=== PATIENT | female | born 1990 | race Caucasian/White ===

== ENCOUNTER 2017-09-03 17:24 | Inpatient (IN) | payer MEDICAID, OTHER ==
[~2017-09-03] VITALS: Ht 175.3 cm; Wt 88.5 kg
[~2017-09-03 17:24] MED LIST: DOCU250C91 PO; HYDR12.54 PO; LURA80 PO; MIRT15 PO; MULT-22 PO; ZIPR80CA2 PO
[2017-09-03] MEDS ORDERED: BUSP5TAB20 PO (18:07)
[2017-09-03] MEDS ORDERED: HALO50VI4 IM (18:07)
[2017-09-03] MEDS ORDERED: ARIP400S3 IM (18:07)
[2017-09-03] MEDS ORDERED: BENZ0.5T44 PO (18:07)
[2017-09-03 18:37] LABS: BASOPHILS % (AUTO) 0.3 % (0.0-2.0); EOSINOPHILS % (AUTO) 0.8 % (1.0-6.0); HEMATOCRIT 39.8 % (36-46); HEMOGLOBIN 13.4 g/dL (12.0-16.0); LYMPHOCYTES % (AUTO) 24.5 % (22.0-44.0); MEAN CORPUSCULAR HEMOGLOBIN 31.2 pg (26.0-34.0); MEAN CORPUSCULAR HGB CONC 33.8 G/dL (31.0-37.0); MEAN CORPUSCULAR VOLUME 92 fL (80-100); MONOCYTES # (AUTO) 0.5 K/uL (0.1-1.0); MONOCYTES % (AUTO) 5.8 % (2.0-9.0); NEUTROPHILS # (AUTO) 5.6 K/uL (1.8-7.7); NEUTROPHILS % (AUTO) 68.6 % (40.0-70.0); PLATELET COUNT (AUTO) 260 K/uL (150-450); RED CELL DISTRIBUTION WIDTH 13.2 % (11.5-14.5)
[2017-09-03 18:52] LABS: ANION GAP 7 mmol/L (8-16); CALCIUM, TOTAL 8.9 mg/dL (8.8-10.5); CARBON DIOXIDE 29 mmol/L (22-29); CHLORIDE 108 mmol/L (98-107); CREATININE 0.87 mg/dL (0.60-1.30); GLOMERULAR FILTR. RATE CALC > 60 mL/min (>60); GLUCOSE,RANDOM 93 mg/dL (70-110); POTASSIUM 4.1 mmol/L (3.5-5.1); SODIUM SERUM 144 mmol/L (136-145); UREA NITROGEN, BLOOD 17 mg/dL (7-18)
[2017-09-03 18:58] LABS: ALANINE AMINOTRANSFERASE 53 U/L (12-78); ALBUMIN 3.7 g/dL (3.4-5.0); ALKALINE PHOSPHATASE 83 U/L (46-116); ASPARTATE AMINOTRANSFERASE 29 U/L (15-37); BILIRUBIN,TOTAL 0.5 mg/dL (0.1-1.0)
[2017-09-03 20:00] LABS: AMPHET/METH SCREEN,URINE POSITIVE (NEGATIVE); BARBITURATE SCREEN, URINE NEGATIVE (NEGATIVE); BENZODIAZEPINES SCREEN,URINE NEGATIVE (NEGATIVE); CANNABINOID SCREEN,URINE NEGATIVE (NEGATIVE); COCAINE SCREEN,URINE NEGATIVE (NEGATIVE); METHADONE SCREEN, URINE NEGATIVE (NEGATIVE); OPIATE SCREEN,URINE NEGATIVE (NEGATIVE)
[2017-09-03 20:06] LABS: PHENCYCLIDINE SCREEN,URINE NEGATIVE (NEGATIVE)
[2017-09-04 09:27] VITALS: BP 116/73
[2017-09-04 09:43] LABS: CHOL/HDL RATIO 2.4 (3.9-5.7); CHOLESTEROL 160 mg/dL (131-200); HDL CHOLESTEROL 66 mg/dL (40-60); LDL CHOL (CALC.) 80 mg/dL (0-130); TRIGLYCERIDES 68 mg/dL (15-150)
[2017-09-04] MEDS ORDERED: INFLUENZA VIRUS VACCINE QVS 2017-18 (3YR+)/PF 60 MCG/0.5 ML SYRINGE IM ONE (10:30)
[2017-09-04] MEDS ORDERED: PNEUMOCOCCAL VACCINE POLYVALENT 0.5 ML VIAL [PPSV23] IM ONE (10:30)
[2017-09-04] MEDS: LORazepam 2 MG TABLET PO PRN ×2 (11:56→20:03)
[2017-09-04] MEDS ORDERED: MAG HYDROX/AL HYDROX/SIMETH ES 30 ML SUSPENSION UDCUP PO PRN (19:30)
[2017-09-04] MEDS ORDERED: PETROLATUM,WHITE 71 GM JELLY TP PRN (19:30)
[2017-09-04] MEDS ORDERED: ONDANSETRON HCL 4 MG TABLET PO PRN (19:30)
[2017-09-04] MEDS ORDERED: BACITRACIN 28.4 GM OINTMENT TP PRN (19:30)
[2017-09-04] MEDS ORDERED: IBUPROFEN 600 MG TABLET PO PRN (19:30)
[2017-09-04] MEDS ORDERED: ACETAMINOPHEN 325 MG TABLET PO PRN (19:30)
[2017-09-04] MEDS ORDERED: MAGNESIUM HYDROXIDE SUSPENSION 30 ML UDCUP PO PRN (19:30)
[2017-09-04] MEDS ORDERED: CloNIDine HCL 0.1 MG TABLET PO PRN (19:30)
[2017-09-04] MEDS ORDERED: LOPERAMIDE HCL 2 MG CAPSULE PO PRN (19:30)
[2017-09-04] MEDS ORDERED: ALBUTEROL SULFATE HFA 90 MCG/PUFF 8 GM INHALER IH PRN (19:30)
[2017-09-04] MEDS ORDERED: BENZOCAINE/MENTHOL LOZENGE [8 LOZENGES/PACKET] MM PRN (19:45)
[2017-09-04] MEDS: MIRTAZAPINE 15 MG TABLET PO SCH (20:04)
[2017-09-04 20:46] VITALS: BP 117/76
[2017-09-04] MEDS: DiphenhydrAMINE HCL 25 MG CAPSULE PO SCH (21:38)
[2017-09-05] MEDS ORDERED: ARIPiprazole ER SUSPENSION 400 MG PRE-FILLED DUAL CHAMBER SYRINGE IM SCH (09:00)
[2017-09-05 09:27] VITALS: BP 107/60
[2017-09-05] MEDS: ARIPiprazole 10 MG TABLET PO SCH (09:40)
[2017-09-05] MEDS: BusPIRone HCL 10 MG TABLET PO SCH (09:40)
[2017-09-05] MEDS: BENZTROPINE MESYLATE 1 MG TABLET PO SCH (09:41)
[2017-09-05] MEDS: NICOTINE 21 MG/24 HOUR PATCH TD SCH (10:46)
[2017-09-05] MEDS: HALOPERIDOL 5 MG TABLET PO PRN (12:54)
[2017-09-05] MEDS: LORazepam 2 MG TABLET PO PRN (12:54)
[2017-09-05 18:47] VITALS: BP 121/75
[2017-09-05] MEDS: DiphenhydrAMINE HCL 25 MG CAPSULE PO SCH (20:28)
[2017-09-05] MEDS: MIRTAZAPINE 15 MG TABLET PO SCH (20:28)
[2017-09-05] MEDS: ZOLPIDEM TARTRATE 10 MG TABLET PO PRN (23:43)
[2017-09-06] MEDS: HALOPERIDOL 5 MG TABLET PO PRN ×2 (00:06→19:52)
[2017-09-06] MEDS: LORazepam 2 MG TABLET PO PRN ×2 (00:31→19:52)
[2017-09-06 08:00] VITALS: BP 122/72
[2017-09-06] MEDS: BusPIRone HCL 10 MG TABLET PO SCH (09:06)
[2017-09-06] MEDS: ARIPiprazole 10 MG TABLET PO SCH (09:06)
[2017-09-06] MEDS: BENZTROPINE MESYLATE 1 MG TABLET PO SCH (09:07)
[2017-09-06] MEDS: NICOTINE 21 MG/24 HOUR PATCH TD SCH (09:09)
[2017-09-06] MEDS: HALOPERIDOL 5 MG TABLET PO SCH (16:24)
[2017-09-06 17:00] VITALS: BP 120/76
[2017-09-06] MEDS: DiphenhydrAMINE HCL 25 MG CAPSULE PO SCH (21:12)
[2017-09-06] MEDS: MIRTAZAPINE 15 MG TABLET PO SCH (21:12)
[2017-09-07 09:03] VITALS: BP 93/52
[2017-09-07] MEDS: LORazepam 2 MG TABLET PO PRN ×2 (10:55→19:16)
[2017-09-07] MEDS: BENZTROPINE MESYLATE 1 MG TABLET PO SCH (10:55)
[2017-09-07] MEDS: HALOPERIDOL 5 MG TABLET PO SCH ×2 (10:55→16:40)
[2017-09-07] MEDS: NICOTINE 21 MG/24 HOUR PATCH TD SCH (11:00)
[2017-09-07] MEDS ORDERED: LORazepam 2 MG/ML VIAL ONE (11:40)
[2017-09-07] MEDS ORDERED: DiphenhydrAMINE HCL 50 MG/ML VIAL IM ONE (11:45)
[2017-09-07] MEDS ORDERED: HALOPERIDOL LACTATE 5 MG/ML VIAL IM ONE (11:45)
[2017-09-07] MEDS ORDERED: LORazepam 2 MG/ML VIAL IM ONE (11:45)
[2017-09-07] MEDS: HALOPERIDOL 5 MG TABLET PO PRN (19:16)
[2017-09-07] MEDS: DiphenhydrAMINE HCL 25 MG CAPSULE PO SCH (20:01)
[2017-09-07] MEDS: MIRTAZAPINE 15 MG TABLET PO SCH (20:02)
[2017-09-07 20:42] VITALS: BP 114/72
[2017-09-08] MEDS: HALOPERIDOL 5 MG TABLET PO SCH ×2 (09:59→16:45)
[2017-09-08] MEDS: BENZTROPINE MESYLATE 1 MG TABLET PO SCH (09:59)
[2017-09-08] MEDS: NICOTINE 21 MG/24 HOUR PATCH TD SCH (10:06)
[2017-09-08 10:24] VITALS: BP 115/67
[2017-09-08] MEDS: LORazepam 2 MG TABLET PO PRN ×2 (12:59→19:37)
[2017-09-08 19:20] VITALS: BP 115/68
[2017-09-08] MEDS: HALOPERIDOL 5 MG TABLET PO PRN (19:37)
[2017-09-08] MEDS: MIRTAZAPINE 15 MG TABLET PO SCH (20:33)
[2017-09-08] MEDS: DiphenhydrAMINE HCL 25 MG CAPSULE PO SCH (20:33)
[2017-09-08] MEDS: ZOLPIDEM TARTRATE 10 MG TABLET PO PRN (21:39)
[2017-09-09 09:31] VITALS: BP 132/83
[2017-09-09] MEDS: LORazepam 2 MG TABLET PO PRN (09:39)
[2017-09-09] MEDS: BENZTROPINE MESYLATE 1 MG TABLET PO SCH (09:39)
[2017-09-09] MEDS: HALOPERIDOL 5 MG TABLET PO SCH ×2 (09:39→17:03)
[2017-09-09] MEDS: NICOTINE 21 MG/24 HOUR PATCH TD SCH (09:40)
[2017-09-09] MEDS: HALOPERIDOL 5 MG TABLET PO PRN (10:37)
[2017-09-09] MEDS ORDERED: HALOPERIDOL LACTATE 5 MG/ML VIAL IM ONE (13:00)
[2017-09-09] MEDS ORDERED: LORazepam 2 MG/ML VIAL IM ONE (13:00)
[2017-09-09] MEDS ORDERED: DiphenhydrAMINE HCL 50 MG/ML VIAL IM ONE (13:00)
[2017-09-09] MEDS: DiphenhydrAMINE HCL 25 MG CAPSULE PO SCH (20:13)
[2017-09-09] MEDS: MIRTAZAPINE 15 MG TABLET PO SCH (20:13)
[2017-09-09 22:52] VITALS: BP 119/63
[2017-09-10] MEDS: BENZTROPINE MESYLATE 1 MG TABLET PO SCH (08:52)
[2017-09-10] MEDS: HALOPERIDOL 5 MG TABLET PO SCH ×2 (08:52→17:55)
[2017-09-10] MEDS: LORazepam 2 MG TABLET PO PRN ×2 (08:53→15:40)
[2017-09-10] MEDS: NICOTINE 21 MG/24 HOUR PATCH TD SCH (09:00)
[2017-09-10 09:42] VITALS: BP 105/55
[2017-09-10] MEDS: HALOPERIDOL 5 MG TABLET PO PRN (15:40)
[2017-09-10 17:13] VITALS: BP 131/81
[2017-09-10] MEDS: MIRTAZAPINE 15 MG TABLET PO SCH (20:06)
[2017-09-10] MEDS: DiphenhydrAMINE HCL 25 MG CAPSULE PO SCH (20:07)
[2017-09-10] MEDS: ZOLPIDEM TARTRATE 10 MG TABLET PO PRN (22:03)
[2017-09-11] MEDS ORDERED: QUEtiapine FUMARATE 25 MG TABLET PO ONE (08:45)
[2017-09-11] MEDS: BENZTROPINE MESYLATE 1 MG TABLET PO SCH (09:13)
[2017-09-11] MEDS: QUEtiapine FUMARATE 25 MG TABLET PO SCH ×3 (09:13→16:01)
[2017-09-11] MEDS: HALOPERIDOL 10 MG TABLET PO SCH ×2 (09:14→16:00)
[2017-09-11] MEDS: LORazepam 2 MG TABLET PO PRN ×2 (09:14→18:33)
[2017-09-11] MEDS: NICOTINE 21 MG/24 HOUR PATCH TD SCH (09:17)
[2017-09-11 10:20] VITALS: BP 115/66
[2017-09-11] MEDS: HALOPERIDOL 5 MG TABLET PO PRN (18:34)
[2017-09-11] MEDS: DiphenhydrAMINE HCL 25 MG CAPSULE PO SCH (20:13)
[2017-09-11] MEDS: MIRTAZAPINE 15 MG TABLET PO SCH (20:13)
[2017-09-11 20:39] VITALS: BP 114/77
[2017-09-12 00:46] VITALS: BP 112/82
[2017-09-12] MEDS: HALOPERIDOL 10 MG TABLET PO SCH ×2 (09:24→17:12)
[2017-09-12] MEDS: BENZTROPINE MESYLATE 1 MG TABLET PO SCH (09:24)
[2017-09-12] MEDS: QUEtiapine FUMARATE 25 MG TABLET PO SCH ×3 (09:24→17:12)
[2017-09-12] MEDS: LORazepam 2 MG TABLET PO PRN ×2 (09:24→17:12)
[2017-09-12 09:28] VITALS: BP 137/83
[2017-09-12] MEDS: NICOTINE 21 MG/24 HOUR PATCH TD SCH (09:29)
[2017-09-12 16:28] VITALS: BP 118/95
[2017-09-12] MEDS: MIRTAZAPINE 15 MG TABLET PO SCH (20:33)
[2017-09-12] MEDS: ZOLPIDEM TARTRATE 10 MG TABLET PO PRN (20:34)
[2017-09-12] MEDS: DiphenhydrAMINE HCL 25 MG CAPSULE PO SCH (20:34)
[2017-09-13 08:00] VITALS: BP 113/92
[2017-09-13] MEDS: HALOPERIDOL 5 MG TABLET PO PRN (08:25)
[2017-09-13] MEDS: NICOTINE 21 MG/24 HOUR PATCH TD SCH (08:25)
[2017-09-13] MEDS: QUEtiapine FUMARATE 25 MG TABLET PO SCH ×3 (08:25→16:31)
[2017-09-13] MEDS: LORazepam 2 MG TABLET PO PRN ×2 (08:25→16:31)
[2017-09-13] MEDS: BENZTROPINE MESYLATE 1 MG TABLET PO SCH (08:25)
[2017-09-13] MEDS: HALOPERIDOL 10 MG TABLET PO SCH ×2 (08:26→16:31)
[2017-09-13 19:56] VITALS: BP 126/68
[2017-09-13] MEDS: MIRTAZAPINE 15 MG TABLET PO SCH (20:16)
[2017-09-13] MEDS: DiphenhydrAMINE HCL 25 MG CAPSULE PO SCH (20:16)
[2017-09-13] MEDS: ZOLPIDEM TARTRATE 10 MG TABLET PO PRN (20:16)
[2017-09-14] MEDS: BENZTROPINE MESYLATE 1 MG TABLET PO SCH (09:08)
[2017-09-14] MEDS: QUEtiapine FUMARATE 25 MG TABLET PO SCH ×3 (09:08→17:00)
[2017-09-14] MEDS: HALOPERIDOL 10 MG TABLET PO SCH ×2 (09:10→17:00)
[2017-09-14] MEDS: NICOTINE 21 MG/24 HOUR PATCH TD SCH (09:12)
[2017-09-14 10:26] VITALS: BP 137/80
[2017-09-14] MEDS ORDERED: DiphenhydrAMINE HCL 50 MG/ML VIAL IM ONE ×2 (14:15→18:00)
[2017-09-14] MEDS ORDERED: LORazepam 2 MG/ML VIAL IM ONE ×2 (14:15→18:00)
[2017-09-14] MEDS ORDERED: HALOPERIDOL LACTATE 5 MG/ML VIAL IM ONE ×2 (14:15→18:00)
[2017-09-14] MEDS ORDERED: LORazepam 2 MG/ML VIAL ONE (14:16)
[2017-09-14 19:19] VITALS: BP 124/66
[2017-09-14] MEDS: MIRTAZAPINE 15 MG TABLET PO SCH (21:07)
[2017-09-14] MEDS: DiphenhydrAMINE HCL 25 MG CAPSULE PO SCH (21:07)
[2017-09-15] MEDS ORDERED: HALOPERIDOL LACTATE 5 MG/ML VIAL IM ONE (08:15)
[2017-09-15] MEDS ORDERED: DiphenhydrAMINE HCL 50 MG/ML VIAL IM ONE (08:15)
[2017-09-15] MEDS ORDERED: LORazepam 2 MG/ML VIAL IM ONE (08:15)
[2017-09-15] MEDS: BENZTROPINE MESYLATE 1 MG TABLET PO SCH (10:01)
[2017-09-15] MEDS: QUEtiapine FUMARATE 25 MG TABLET PO SCH ×3 (10:02→16:02)
[2017-09-15] MEDS: HALOPERIDOL 10 MG TABLET PO SCH ×2 (10:02→16:02)
[2017-09-15] MEDS: NICOTINE 21 MG/24 HOUR PATCH TD SCH (10:04)
[2017-09-15] MEDS: LORazepam 2 MG TABLET PO PRN (10:42)
[2017-09-15] MEDS: MIRTAZAPINE 15 MG TABLET PO SCH (20:06)
[2017-09-15] MEDS: DiphenhydrAMINE HCL 25 MG CAPSULE PO SCH (20:06)
[2017-09-15 20:26] VITALS: BP 122/76
[2017-09-16] MEDS: BENZTROPINE MESYLATE 1 MG TABLET PO SCH (08:24)
[2017-09-16] MEDS: HALOPERIDOL 10 MG TABLET PO SCH ×2 (08:24→16:13)
[2017-09-16] MEDS: QUEtiapine FUMARATE 25 MG TABLET PO SCH ×3 (08:25→16:13)
[2017-09-16] MEDS: NICOTINE 21 MG/24 HOUR PATCH TD SCH (08:31)
[2017-09-16] MEDS: LORazepam 2 MG TABLET PO PRN ×3 (08:56→20:23)
[2017-09-16 10:57] VITALS: BP 119/78
[2017-09-16 16:40] VITALS: BP 115/61
[2017-09-16] MEDS: HALOPERIDOL 5 MG TABLET PO PRN (20:23)
[2017-09-16] MEDS: ZOLPIDEM TARTRATE 10 MG TABLET PO PRN (21:44)
[2017-09-16] MEDS: DiphenhydrAMINE HCL 25 MG CAPSULE PO SCH (21:44)
[2017-09-16] MEDS: MIRTAZAPINE 15 MG TABLET PO SCH (21:44)
[2017-09-17] MEDS: QUEtiapine FUMARATE 25 MG TABLET PO SCH ×2 (09:09→12:19)
[2017-09-17] MEDS: BENZTROPINE MESYLATE 1 MG TABLET PO SCH (09:09)
[2017-09-17] MEDS: NICOTINE 21 MG/24 HOUR PATCH TD SCH (09:09)
[2017-09-17] MEDS: HALOPERIDOL 10 MG TABLET PO SCH (09:09)
[2017-09-17 09:36] VITALS: BP 127/84
[2017-09-17] MEDS ORDERED: QUET100T PO (10:26)
[2017-09-17] MEDS ORDERED: HALO10 PO (10:26)
[2017-09-17] MEDS ORDERED: MIRT30 PO (10:26)
[2017-09-17] MEDS ORDERED: DIPH25 PO (10:40)
== END 2017-09-17 14:55 | disposition home or self-care (01) | DRG 750 ==
LOC: EMS 17:25 → AHU 09-04 08:19 → 3EI 09-04 20:05
PROVIDERS: ADMIT Psychiatry & Neurology Child & Adolescent Psychiatry; ATTEND Psychiatry & Neurology Child & Adolescent Psychiatry
DX: F25.0 Schizoaffective disorder, bipolar type (principal); R45.851 Suicidal ideations; F31.9 Bipolar disorder, unspecified; F60.3 Borderline personality disorder; F41.9 Anxiety disorder, unspecified; G47.00 Insomnia, unspecified; F15.10 Other stimulant abuse, uncomplicated; F17.210 Nicotine dependence, cigarettes, uncomplicated; Z88.8 Allergy status to other drugs, medicaments and biological substances; Z79.899 Other long term (current) drug therapy; Z91.5 Personal history of self-harm; Z28.21 Immunization not carried out because of patient refusal; Z71.6 Tobacco abuse counseling; Z71.51 Drug abuse counseling and surveillance of drug abuser
CPT/HCPCS: 99285; G0480; J0401; J1200; J1630; J2060

== ENCOUNTER 2017-11-26 22:02 | Emergency (ER) | payer MEDICAID ==
[~2017-11-26] VITALS: Ht 177.8 cm; Wt 91.4 kg
[~2017-11-26 22:02] MED LIST changes: +ARIP400S3 IM; +BENZ0.5T44 PO; +DIPH25 PO; -DOCU250C91 PO; +HALO10 PO; -HYDR12.54 PO; -LURA80 PO; -MIRT15 PO; +MIRT30 PO; -MULT-22 PO; +QUET100T PO; -ZIPR80CA2 PO
[2017-11-26 22:05] VITALS: BP 134/90
[2017-11-26] MEDS ORDERED: QUET100T PO (22:11)
[2017-11-26] MEDS ORDERED: CHOL200016 PO (22:11)
[2017-11-26] MEDS ORDERED: SENN-175 PO (22:11)
[2017-11-26] MEDS ORDERED: MIRALAX PO (22:11)
[2017-11-26 22:23] LABS: BASOPHILS % (AUTO) 0.5 % (0.0-2.0); HEMATOCRIT 40.3 % (36-46); LYMPHOCYTES # (AUTO) 2.6 K/uL (1.0-4.8); LYMPHOCYTES % (AUTO) 33.2 % (22.0-44.0); MEAN CORPUSCULAR HEMOGLOBIN 32.6 pg (26.0-34.0); MEAN CORPUSCULAR HGB CONC 34.7 G/dL (31.0-37.0); MEAN CORPUSCULAR VOLUME 94 fL (80-100); MONOCYTES # (AUTO) 0.4 K/uL (0.1-1.0); MONOCYTES % (AUTO) 5.1 % (2.0-9.0); NEUTROPHILS # (AUTO) 4.6 K/uL (1.8-7.7); NEUTROPHILS % (AUTO) 59.2 % (40.0-70.0); PLATELET COUNT (AUTO) 263 K/uL (150-450); RED BLOOD CELL COUNT(AUTO) 4.28 MIL/uL (4.00-5.20); RED CELL DISTRIBUTION WIDTH 13.2 % (11.5-14.5)
[2017-11-26 22:31] LABS: AMPHET/METH SCREEN,URINE POSITIVE (NEGATIVE); BARBITURATE SCREEN, URINE NEGATIVE (NEGATIVE); BENZODIAZEPINES SCREEN,URINE NEGATIVE (NEGATIVE); CANNABINOID SCREEN,URINE NEGATIVE (NEGATIVE); COCAINE SCREEN,URINE NEGATIVE (NEGATIVE); METHADONE SCREEN, URINE NEGATIVE (NEGATIVE); OPIATE SCREEN,URINE NEGATIVE (NEGATIVE)
[2017-11-26 22:32] LABS: PHENCYCLIDINE SCREEN,URINE NEGATIVE (NEGATIVE)
[2017-11-26 22:37] LABS: ANION GAP 7 mmol/L (8-16); CALCIUM, TOTAL 8.3 mg/dL (8.8-10.5); CARBON DIOXIDE 29 mmol/L (22-29); CHLORIDE 104 mmol/L (98-107); CREATININE 0.92 mg/dL (0.60-1.30); GLOMERULAR FILTR. RATE CALC > 60 mL/min (>60); GLUCOSE,RANDOM 81 mg/dL (70-110); POTASSIUM 3.8 mmol/L (3.5-5.1); SODIUM SERUM 140 mmol/L (136-145); UREA NITROGEN, BLOOD 19 mg/dL (7-18)
[2017-11-26 22:43] LABS: ALANINE AMINOTRANSFERASE 29 U/L (12-78); ALBUMIN 3.5 g/dL (3.4-5.0); ALKALINE PHOSPHATASE 96 U/L (46-116); ASPARTATE AMINOTRANSFERASE 16 U/L (15-37); BILIRUBIN,TOTAL 0.4 mg/dL (0.1-1.0); TOTAL PROTEIN, SERUM 7.2 g/dL (6.4-8.2)
== END 2017-11-27 00:16 | disposition left against medical advice (07) ==
LOC: EMS 22:02
DX: Z53.21 Procedure and treatment not carried out due to patient leaving prior to being seen by health care provider (principal)
CPT/HCPCS: 36415; 80053; 80307; 84703; 85025; G0480

== ENCOUNTER 2017-12-20 14:32 | Inpatient (IN) | payer MEDICAID, OTHER ==
[~2017-12-20] VITALS: Ht 177.8 cm; Wt 88.9 kg
[~2017-12-20 14:32] MED LIST changes: +CHOL200016 PO; +MIRALAX PO; +SENN-175 PO
[2017-12-20 16:14] LABS: BASOPHILS % (AUTO) 0.3 % (0.0-2.0); EOSINOPHILS % (AUTO) 0.4 % (1.0-6.0); HEMATOCRIT 39.2 % (36-46); HEMOGLOBIN 13.3 g/dL (12.0-16.0); MEAN CORPUSCULAR HEMOGLOBIN 31.9 pg (26.0-34.0); MEAN CORPUSCULAR VOLUME 94 fL (80-100); MONOCYTES # (AUTO) 0.8 K/uL (0.1-1.0); NEUTROPHILS # (AUTO) 9.6 K/uL (1.8-7.7); NEUTROPHILS % (AUTO) 71.3 % (40.0-70.0); PLATELET COUNT (AUTO) 240 K/uL (150-450); RED BLOOD CELL COUNT(AUTO) 4.17 MIL/uL (4.00-5.20); RED CELL DISTRIBUTION WIDTH 12.9 % (11.5-14.5)
[2017-12-20 16:25] LABS: ANION GAP 9 mmol/L (8-16); CALCIUM, TOTAL 8.3 mg/dL (8.8-10.5); CARBON DIOXIDE 23 mmol/L (22-29); CHLORIDE 108 mmol/L (98-107); CREATININE 0.93 mg/dL (0.60-1.30); GLOMERULAR FILTR. RATE CALC > 60 mL/min (>60); GLUCOSE,RANDOM 136 mg/dL (70-110); POTASSIUM 3.4 mmol/L (3.5-5.1); SODIUM SERUM 140 mmol/L (136-145); UREA NITROGEN, BLOOD 15 mg/dL (7-18)
[2017-12-20 16:38] LABS: ALANINE AMINOTRANSFERASE 26 U/L (12-78); ALBUMIN 3.6 g/dL (3.4-5.0); ALKALINE PHOSPHATASE 99 U/L (46-116); ASPARTATE AMINOTRANSFERASE 13 U/L (15-37); BILIRUBIN,TOTAL 0.2 mg/dL (0.1-1.0); THYROID STIMULATING HORMONE 0.98 uIU/mL (0.36-3.74); TOTAL PROTEIN, SERUM 7.1 g/dL (6.4-8.2)
[2017-12-20 17:19] LABS: AMPHET/METH SCREEN,URINE POSITIVE (NEGATIVE); BARBITURATE SCREEN, URINE NEGATIVE (NEGATIVE); BENZODIAZEPINES SCREEN,URINE POSITIVE (NEGATIVE); CANNABINOID SCREEN,URINE NEGATIVE (NEGATIVE); COCAINE SCREEN,URINE NEGATIVE (NEGATIVE); METHADONE SCREEN, URINE NEGATIVE (NEGATIVE); OPIATE SCREEN,URINE POSITIVE (NEGATIVE)
[2017-12-20 17:20] LABS: PHENCYCLIDINE SCREEN,URINE NEGATIVE (NEGATIVE)
[2017-12-20] MEDS ORDERED: LORazepam 2 MG/ML VIAL IM ONE (17:45)
[2017-12-20] MEDS ORDERED: HALOPERIDOL LACTATE 5 MG/ML VIAL IM ONE (17:45)
[2017-12-20] MEDS ORDERED: SODIUM CHLORIDE 0.9% 1,000 ML IV ONE (17:45)
[2017-12-20] MEDS ORDERED: ZOLPIDEM TARTRATE 10 MG TABLET PO PRN (19:45)
[2017-12-21 00:16] VITALS: BP 115/64
[2017-12-21 00:28] VITALS: BP 115/74
[2017-12-21 01:21] VITALS: BP 115/74
[2017-12-21 08:30] VITALS: BP 121/68
[2017-12-21] MEDS: LORazepam 2 MG TABLET PO PRN (09:00)
[2017-12-21] MEDS: HALOPERIDOL 5 MG TABLET PO PRN (09:00)
[2017-12-21] MEDS ORDERED: POTASSIUM CHLORIDE 20 MEQ ER TABLET PO ONE (09:15)
[2017-12-21 09:32] LABS: CHOL/HDL RATIO 2.4 (3.9-5.7)
[2017-12-21] MEDS ORDERED: ACETAMINOPHEN 325 MG TABLET PO PRN (12:15)
[2017-12-21] MEDS ORDERED: CloNIDine HCL 0.1 MG TABLET PO PRN (12:15)
[2017-12-21] MEDS ORDERED: MAG HYDROX/AL HYDROX/SIMETH ES 30 ML SUSPENSION UDCUP PO PRN (12:15)
[2017-12-21] MEDS ORDERED: MAGNESIUM HYDROXIDE SUSPENSION 30 ML UDCUP PO PRN (12:15)
[2017-12-21] MEDS ORDERED: IBUPROFEN 400 MG TABLET PO PRN (12:15)
[2017-12-21] MEDS ORDERED: ALBUTEROL SULFATE HFA 90 MCG/PUFF 8 GM INHALER IH PRN (12:15)
[2017-12-21] MEDS ORDERED: DOCUSATE SODIUM 100 MG CAPSULE PO PRN (12:15)
[2017-12-21] MEDS ORDERED: PETROLATUM,WHITE 71 GM JELLY TP PRN (12:15)
[2017-12-21] MEDS ORDERED: LOPERAMIDE HCL 2 MG CAPSULE PO PRN (12:15)
[2017-12-21] MEDS ORDERED: ONDANSETRON HCL 4 MG TABLET PO PRN (12:15)
[2017-12-21 16:10] VITALS: BP 120/66
[2017-12-21] MEDS: HALOPERIDOL 10 MG TABLET PO SCH (20:15)
[2017-12-21] MEDS: DiphenhydrAMINE HCL 25 MG CAPSULE PO SCH (20:15)
[2017-12-21] MEDS: MIRTAZAPINE 15 MG TABLET PO SCH (20:15)
[2017-12-21] MEDS: BENZTROPINE MESYLATE 0.5 MG TABLET PO SCH (20:15)
[2017-12-21] MEDS: QUEtiapine FUMARATE 200 MG TABLET PO SCH (20:16)
[2017-12-22 06:27] VITALS: BP 109/61
[2017-12-22 07:46] LABS: HEMOGLOBIN A1C 5.1 % (4.5-6.2)
[2017-12-22 08:03] LABS: CHOL/HDL RATIO 2.9 (3.9-5.7); POTASSIUM 4.5 mmol/L (3.5-5.1); THYROID STIMULATING HORMONE 1.04 uIU/mL (0.36-3.74)
[2017-12-22] MEDS: LORazepam 2 MG TABLET PO PRN ×2 (08:35→16:54)
[2017-12-22] MEDS: HALOPERIDOL 5 MG TABLET PO PRN (08:35)
[2017-12-22 08:36] VITALS: BP 129/76
[2017-12-22] MEDS: NICOTINE 14 MG/24 HOUR PATCH TD SCH (10:49)
[2017-12-22 17:59] VITALS: BP 125/73
[2017-12-22] MEDS: HALOPERIDOL 10 MG TABLET PO SCH (20:15)
[2017-12-22] MEDS: MIRTAZAPINE 15 MG TABLET PO SCH (20:15)
[2017-12-22] MEDS: DiphenhydrAMINE HCL 25 MG CAPSULE PO SCH (20:16)
[2017-12-22] MEDS: BENZTROPINE MESYLATE 0.5 MG TABLET PO SCH (20:16)
[2017-12-22] MEDS: QUEtiapine FUMARATE 200 MG TABLET PO SCH (20:16)
[2017-12-23] MEDS: NICOTINE 14 MG/24 HOUR PATCH TD SCH (08:13)
[2017-12-23] MEDS: HALOPERIDOL 5 MG TABLET PO PRN (08:13)
[2017-12-23] MEDS: LORazepam 2 MG TABLET PO PRN (08:13)
[2017-12-23 08:21] VITALS: BP 114/65
[2017-12-23] MEDS ORDERED: LORazepam 2 MG/ML VIAL IM ONE (15:00)
[2017-12-23] MEDS ORDERED: DiphenhydrAMINE HCL 50 MG/ML VIAL ONE (15:00)
[2017-12-23] MEDS ORDERED: HALOPERIDOL LACTATE 5 MG/ML VIAL ONE (15:00)
[2017-12-23] MEDS ORDERED: LORazepam 2 MG/ML VIAL ONE (15:00)
[2017-12-23] MEDS ORDERED: HALOPERIDOL LACTATE 5 MG/ML VIAL IM ONE (15:00)
[2017-12-23] MEDS ORDERED: DiphenhydrAMINE HCL 50 MG/ML VIAL IM ONE (15:00)
[2017-12-23] MEDS: QUEtiapine FUMARATE 200 MG TABLET PO SCH (20:13)
[2017-12-23] MEDS: BENZTROPINE MESYLATE 0.5 MG TABLET PO SCH (20:13)
[2017-12-23] MEDS: HALOPERIDOL 10 MG TABLET PO SCH (20:13)
[2017-12-23] MEDS: MIRTAZAPINE 15 MG TABLET PO SCH (20:13)
[2017-12-23] MEDS: DiphenhydrAMINE HCL 25 MG CAPSULE PO SCH (20:13)
[2017-12-23 21:14] VITALS: BP 111/68
[2017-12-24 07:18] VITALS: BP 115/62
[2017-12-24 08:38] VITALS: BP 102/66
[2017-12-24] MEDS: NICOTINE 14 MG/24 HOUR PATCH TD SCH (09:00)
[2017-12-24] MEDS: HALOPERIDOL 5 MG TABLET PO PRN ×2 (10:48→20:40)
[2017-12-24] MEDS: LORazepam 2 MG TABLET PO PRN ×2 (10:48→20:40)
[2017-12-24 16:07] VITALS: BP 139/69
[2017-12-24] MEDS: MIRTAZAPINE 15 MG TABLET PO SCH (20:06)
[2017-12-24] MEDS: BENZTROPINE MESYLATE 0.5 MG TABLET PO SCH (20:07)
[2017-12-24] MEDS: HALOPERIDOL 10 MG TABLET PO SCH (20:07)
[2017-12-24] MEDS: DiphenhydrAMINE HCL 25 MG CAPSULE PO SCH (20:07)
[2017-12-24] MEDS: QUEtiapine FUMARATE 200 MG TABLET PO SCH (20:07)
[2017-12-24] MEDS ORDERED: DiphenhydrAMINE HCL 50 MG/ML VIAL IM ONE (21:00)
[2017-12-24] MEDS ORDERED: HALOPERIDOL LACTATE 5 MG/ML VIAL IM ONE (21:00)
[2017-12-24 21:45] VITALS: BP 128/79
[2017-12-25 06:40] VITALS: BP 127/74
[2017-12-25 08:26] VITALS: BP 116/69
[2017-12-25 08:43] LABS: BASOPHILS % (AUTO) 0.3 % (0.0-2.0); EOSINOPHILS % (AUTO) 1.2 % (1.0-6.0); HEMATOCRIT 41.8 % (36-46); HEMOGLOBIN 14.1 g/dL (12.0-16.0); LYMPHOCYTES # (AUTO) 2.5 K/uL (1.0-4.8); LYMPHOCYTES % (AUTO) 35.5 % (22.0-44.0); MEAN CORPUSCULAR HEMOGLOBIN 31.7 pg (26.0-34.0); MEAN CORPUSCULAR HGB CONC 33.7 G/dL (31.0-37.0); MEAN CORPUSCULAR VOLUME 94 fL (80-100); MONOCYTES # (AUTO) 0.3 K/uL (0.1-1.0); MONOCYTES % (AUTO) 4.8 % (2.0-9.0); NEUTROPHILS # (AUTO) 4.1 K/uL (1.8-7.7); NEUTROPHILS % (AUTO) 58.2 % (40.0-70.0); PLATELET COUNT (AUTO) 242 K/uL (150-450); RED BLOOD CELL COUNT(AUTO) 4.44 MIL/uL (4.00-5.20); RED CELL DISTRIBUTION WIDTH 13.2 % (11.5-14.5)
[2017-12-25] MEDS: HALOPERIDOL 5 MG TABLET PO PRN (09:56)
[2017-12-25] MEDS: LORazepam 2 MG TABLET PO PRN (09:56)
[2017-12-25] MEDS: NICOTINE 14 MG/24 HOUR PATCH TD SCH (10:07)
[2017-12-25] MEDS ORDERED: BENZ0.5T44 PO (13:09)
[2017-12-25] MEDS ORDERED: MIRT15 PO (13:09)
[2017-12-25] MEDS ORDERED: QUET200T PO (13:09)
[2017-12-25] MEDS ORDERED: HALO10 PO (13:09)
[2017-12-25] MEDS ORDERED: ARIP400S3 IM (13:24)
[2018-01-03] MEDS ORDERED: ARIPiprazole ER SUSPENSION 400 MG PRE-FILLED DUAL CHAMBER SYRINGE IM SCH (09:00)
== END 2017-12-25 14:00 | disposition home or self-care (01) | DRG 750 ==
LOC: EMS 14:34 → B3A 20:17
PROVIDERS: ADMIT Psychiatry & Neurology Child & Adolescent Psychiatry; ATTEND Psychiatry & Neurology Child & Adolescent Psychiatry
DX: F25.0 Schizoaffective disorder, bipolar type (principal); Z91.14 Patient's other noncompliance with medication regimen; E55.9 Vitamin D deficiency, unspecified; F15.10 Other stimulant abuse, uncomplicated; F17.200 Nicotine dependence, unspecified, uncomplicated; F41.9 Anxiety disorder, unspecified; K59.00 Constipation, unspecified; N83.209 Unspecified ovarian cyst, unspecified side; D72.829 Elevated white blood cell count, unspecified; E87.6 Hypokalemia; F19.10 Other psychoactive substance abuse, uncomplicated; Z88.5 Allergy status to narcotic agent; Z88.8 Allergy status to other drugs, medicaments and biological substances; Z91.5 Personal history of self-harm
CPT/HCPCS: 83036; 84132; 84443; 96372; 99285; 99406; G0480; J1200; J1630; J2060

== ENCOUNTER 2018-01-31 10:56 | Inpatient (IN) | payer MEDICAID, OTHER ==
[~2018-01-31] VITALS: Ht 180.3 cm; Wt 91.2 kg
[~2018-01-31 10:56] MED LIST changes: -CHOL200016 PO; -MIRALAX PO; +MIRT15 PO; -MIRT30 PO; -QUET100T PO; +QUET200T PO; -SENN-175 PO
[2018-01-31 12:22] LABS: BASOPHILS % (AUTO) 0.4 % (0.0-2.0); EOSINOPHILS % (AUTO) 0.6 % (1.0-6.0); HEMATOCRIT 37.3 % (36-46); HEMOGLOBIN 12.6 g/dL (12.0-16.0); LYMPHOCYTES % (AUTO) 25.4 % (22.0-44.0); MEAN CORPUSCULAR HEMOGLOBIN 31.8 pg (26.0-34.0); MEAN CORPUSCULAR HGB CONC 33.7 G/dL (31.0-37.0); MEAN CORPUSCULAR VOLUME 94 fL (80-100); MONOCYTES # (AUTO) 0.4 K/uL (0.1-1.0); MONOCYTES % (AUTO) 5.5 % (2.0-9.0); NEUTROPHILS # (AUTO) 5.5 K/uL (1.8-7.7); NEUTROPHILS % (AUTO) 68.1 % (40.0-70.0); PLATELET COUNT (AUTO) 268 K/uL (150-450); RED BLOOD CELL COUNT(AUTO) 3.96 MIL/uL (4.00-5.20); RED CELL DISTRIBUTION WIDTH 13.3 % (11.5-14.5)
[2018-01-31 12:31] LABS: ANION GAP 6 mmol/L (8-16); CARBON DIOXIDE 29 mmol/L (22-29); CHLORIDE 106 mmol/L (98-107); CREATININE 0.92 mg/dL (0.60-1.30); GLOMERULAR FILTR. RATE CALC > 60 mL/min (>60); GLUCOSE,RANDOM 91 mg/dL (70-110); POTASSIUM 3.9 mmol/L (3.5-5.1); SODIUM SERUM 141 mmol/L (136-145); UREA NITROGEN, BLOOD 19 mg/dL (7-18)
[2018-01-31 12:37] LABS: ALANINE AMINOTRANSFERASE 25 U/L (12-78); ALBUMIN 3.5 g/dL (3.4-5.0); ALKALINE PHOSPHATASE 77 U/L (46-116); ASPARTATE AMINOTRANSFERASE 19 U/L (15-37); BILIRUBIN,TOTAL 0.4 mg/dL (0.1-1.0); TOTAL PROTEIN, SERUM 6.8 g/dL (6.4-8.2)
[2018-01-31] MEDS ORDERED: ACETAMINOPHEN 325 MG TABLET PO PRN (16:15)
[2018-01-31] MEDS ORDERED: IBUPROFEN 400 MG TABLET PO PRN (16:15)
[2018-01-31 17:24] LABS: AMPHET/METH SCREEN,URINE POSITIVE (NEGATIVE); BARBITURATE SCREEN, URINE NEGATIVE (NEGATIVE); BENZODIAZEPINES SCREEN,URINE NEGATIVE (NEGATIVE); CANNABINOID SCREEN,URINE NEGATIVE (NEGATIVE); COCAINE SCREEN,URINE NEGATIVE (NEGATIVE); METHADONE SCREEN, URINE NEGATIVE (NEGATIVE); OPIATE SCREEN,URINE NEGATIVE (NEGATIVE)
[2018-01-31 17:26] LABS: PHENCYCLIDINE SCREEN,URINE NEGATIVE (NEGATIVE)
[2018-02-01] MEDS ORDERED: LORazepam 2 MG/ML VIAL IM ONE ×2 (05:45→15:15)
[2018-02-01] MEDS ORDERED: HALOPERIDOL LACTATE 5 MG/ML VIAL IM ONE ×2 (05:45→15:15)
[2018-02-01] MEDS ORDERED: DiphenhydrAMINE HCL 50 MG/ML VIAL IM ONE ×2 (05:45→15:15)
[2018-02-01 09:07] LABS: BASOPHILS % (AUTO) 0.3 % (0.0-2.0); EOSINOPHILS % (AUTO) 1.1 % (1.0-6.0); HEMATOCRIT 37.2 % (36-46); HEMOGLOBIN 12.5 g/dL (12.0-16.0); LYMPHOCYTES # (AUTO) 2.1 K/uL (1.0-4.8); LYMPHOCYTES % (AUTO) 29.5 % (22.0-44.0); MEAN CORPUSCULAR HEMOGLOBIN 31.7 pg (26.0-34.0); MEAN CORPUSCULAR HGB CONC 33.6 G/dL (31.0-37.0); MEAN CORPUSCULAR VOLUME 94 fL (80-100); MONOCYTES # (AUTO) 0.5 K/uL (0.1-1.0); MONOCYTES % (AUTO) 6.5 % (2.0-9.0); NEUTROPHILS # (AUTO) 4.4 K/uL (1.8-7.7); NEUTROPHILS % (AUTO) 62.6 % (40.0-70.0); PLATELET COUNT (AUTO) 254 K/uL (150-450); RED BLOOD CELL COUNT(AUTO) 3.94 MIL/uL (4.00-5.20)
[2018-02-01 09:25] LABS: HEMOGLOBIN A1C 5.3 % (4.5-6.2)
[2018-02-01 09:31] LABS: ALANINE AMINOTRANSFERASE 22 U/L (12-78); ALBUMIN 3.2 g/dL (3.4-5.0); ALKALINE PHOSPHATASE 70 U/L (46-116); ANION GAP 8 mmol/L (8-16); ASPARTATE AMINOTRANSFERASE 20 U/L (15-37); BILIRUBIN,TOTAL 0.4 mg/dL (0.1-1.0); CALCIUM, TOTAL 8.5 mg/dL (8.8-10.5); CARBON DIOXIDE 27 mmol/L (22-29); CHLORIDE 109 mmol/L (98-107); CHOL/HDL RATIO 2.5 (3.9-5.7); CHOLESTEROL 111 mg/dL (131-200); CREATININE 0.94 mg/dL (0.60-1.30); GLOMERULAR FILTR. RATE CALC > 60 mL/min (>60); GLUCOSE,RANDOM 105 mg/dL (70-110); HDL CHOLESTEROL 44 mg/dL (40-60); LDL CHOL (CALC.) 60 mg/dL (0-130); POTASSIUM 3.7 mmol/L (3.5-5.1); SODIUM SERUM 144 mmol/L (136-145); THYROID STIMULATING HORMONE 0.69 uIU/mL (0.36-3.74); TOTAL PROTEIN, SERUM 6.4 g/dL (6.4-8.2); TRIGLYCERIDES 36 mg/dL (15-150); UREA NITROGEN, BLOOD 16 mg/dL (7-18)
[2018-02-01 13:54] VITALS: BP 123/78
[2018-02-01] MEDS ORDERED: MAG HYDROX/AL HYDROX/SIMETH ES 30 ML SUSPENSION UDCUP PO PRN (14:30)
[2018-02-01] MEDS ORDERED: DOCUSATE SODIUM 100 MG CAPSULE PO PRN (14:30)
[2018-02-01] MEDS ORDERED: ACETAMINOPHEN 325 MG TABLET PO PRN (14:30)
[2018-02-01] MEDS ORDERED: IBUPROFEN 400 MG TABLET PO PRN (14:30)
[2018-02-01] MEDS ORDERED: ONDANSETRON HCL 4 MG TABLET PO PRN (14:30)
[2018-02-01] MEDS ORDERED: LOPERAMIDE HCL 2 MG CAPSULE PO PRN (14:30)
[2018-02-01] MEDS ORDERED: GuaiFENesin/D-METHORPHAN [SUGAR-FREE] 200-20MG/10 ML SYRUP UDCUP PO PRN (14:30)
[2018-02-01] MEDS ORDERED: ALBUTEROL SULFATE HFA 90 MCG/PUFF 8 GM INHALER IH PRN (14:30)
[2018-02-01] MEDS ORDERED: PETROLATUM,WHITE 71 GM JELLY TP PRN (14:30)
[2018-02-02 06:16] LABS: BASOPHILS % (AUTO) 0.4 % (0.0-2.0); HEMATOCRIT 37.9 % (36-46); HEMOGLOBIN 12.8 g/dL (12.0-16.0); LYMPHOCYTES # (AUTO) 3.2 K/uL (1.0-4.8); LYMPHOCYTES % (AUTO) 41.8 % (22.0-44.0); MEAN CORPUSCULAR HEMOGLOBIN 31.7 pg (26.0-34.0); MEAN CORPUSCULAR HGB CONC 33.7 G/dL (31.0-37.0); MEAN CORPUSCULAR VOLUME 94 fL (80-100); MONOCYTES # (AUTO) 0.5 K/uL (0.1-1.0); MONOCYTES % (AUTO) 6.2 % (2.0-9.0); NEUTROPHILS # (AUTO) 3.7 K/uL (1.8-7.7); NEUTROPHILS % (AUTO) 49.6 % (40.0-70.0); PLATELET COUNT (AUTO) 247 K/uL (150-450); RED BLOOD CELL COUNT(AUTO) 4.04 MIL/uL (4.00-5.20); RED CELL DISTRIBUTION WIDTH 12.9 % (11.5-14.5)
[2018-02-02 06:25] LABS: HEMOGLOBIN A1C 5.2 % (4.5-6.2)
[2018-02-02 06:45] LABS: ALANINE AMINOTRANSFERASE 22 U/L (12-78); ALBUMIN 3.2 g/dL (3.4-5.0); ALKALINE PHOSPHATASE 75 U/L (46-116); ANION GAP 7 mmol/L (8-16); ASPARTATE AMINOTRANSFERASE 18 U/L (15-37); BILIRUBIN,TOTAL 0.3 mg/dL (0.1-1.0); CALCIUM, TOTAL 8.4 mg/dL (8.8-10.5); CARBON DIOXIDE 26 mmol/L (22-29); CHLORIDE 109 mmol/L (98-107); CHOL/HDL RATIO 2.6 (3.9-5.7); CHOLESTEROL 111 mg/dL (131-200); CREATININE 0.76 mg/dL (0.60-1.30); GLOMERULAR FILTR. RATE CALC > 60 mL/min (>60); GLUCOSE,RANDOM 85 mg/dL (70-110); HDL CHOLESTEROL 42 mg/dL (40-60); LDL CHOL (CALC.) 59 mg/dL (0-130); POTASSIUM 4.1 mmol/L (3.5-5.1); SODIUM SERUM 142 mmol/L (136-145); THYROID STIMULATING HORMONE 0.54 uIU/mL (0.36-3.74); TOTAL PROTEIN, SERUM 6.4 g/dL (6.4-8.2); TRIGLYCERIDES 49 mg/dL (15-150); UREA NITROGEN, BLOOD 15 mg/dL (7-18)
[2018-02-02] MEDS: HALOPERIDOL 5 MG TABLET PO PRN ×2 (08:00→09:33)
[2018-02-02 08:23] VITALS: BP 124/81
[2018-02-02] MEDS ORDERED: LORazepam 2 MG/ML VIAL IM ONE (09:30)
[2018-02-02] MEDS ORDERED: HALOPERIDOL LACTATE 5 MG/ML VIAL IM ONE (09:30)
[2018-02-02] MEDS ORDERED: DiphenhydrAMINE HCL 50 MG/ML VIAL IM ONE (09:30)
[2018-02-02] MEDS: OLANZapine 5 MG RAPDIS TABLET PO PRN (09:33)
[2018-02-02] MEDS ORDERED: LORazepam 2 MG/ML VIAL ONE (09:33)
[2018-02-02] MEDS ORDERED: DiphenhydrAMINE HCL 50 MG/ML VIAL ONE (09:33)
[2018-02-02] MEDS ORDERED: HALOPERIDOL LACTATE 5 MG/ML VIAL ONE (09:33)
[2018-02-02 16:50] VITALS: BP 119/71
[2018-02-02] MEDS: DIVALPROEX SODIUM 500 MG ER TABLET PO SCH (17:00)
[2018-02-03] MEDS: ZOLPIDEM TARTRATE 10 MG TABLET PO PRN (02:40)
[2018-02-03 08:29] VITALS: BP 129/78
[2018-02-03] MEDS: DIVALPROEX SODIUM 500 MG ER TABLET PO SCH (09:00)
[2018-02-03] MEDS: HALOPERIDOL 5 MG TABLET PO PRN (09:11)
[2018-02-03] MEDS: OLANZapine 5 MG RAPDIS TABLET PO PRN (09:11)
[2018-02-03] MEDS ORDERED: HALOPERIDOL LACTATE 5 MG/ML VIAL ONE (09:12)
[2018-02-03] MEDS ORDERED: DiphenhydrAMINE HCL 50 MG/ML VIAL ONE (09:12)
[2018-02-03] MEDS ORDERED: LORazepam 2 MG/ML VIAL ONE (09:12)
[2018-02-03] MEDS ORDERED: LORazepam 2 MG/ML VIAL IM ONE (09:45)
[2018-02-03] MEDS ORDERED: HALOPERIDOL LACTATE 5 MG/ML VIAL IM ONE (09:45)
[2018-02-03] MEDS ORDERED: DiphenhydrAMINE HCL 50 MG/ML VIAL IM ONE (09:45)
[2018-02-03] MEDS: BENZTROPINE MESYLATE 1 MG TABLET PO SCH (16:29)
[2018-02-03 16:54] VITALS: BP 118/77
[2018-02-03] MEDS ORDERED: ARIPiprazole 15 MG TABLET PO SCH (21:00)
[2018-02-04 08:35] VITALS: BP 122/74
[2018-02-04] MEDS: BENZTROPINE MESYLATE 1 MG TABLET PO SCH ×2 (08:58→16:01)
[2018-02-04] MEDS: HALOPERIDOL 5 MG TABLET PO PRN (11:33)
[2018-02-04] MEDS: RisperiDONE 2 MG TABLET PO SCH ×2 (11:33→16:01)
[2018-02-04] MEDS: OLANZapine 5 MG RAPDIS TABLET PO PRN (15:48)
[2018-02-04] MEDS ORDERED: LORazepam 2 MG/ML VIAL IM ONE (16:30)
[2018-02-04] MEDS ORDERED: HALOPERIDOL LACTATE 5 MG/ML VIAL IM ONE (16:30)
[2018-02-04] MEDS ORDERED: DiphenhydrAMINE HCL 50 MG/ML VIAL IM ONE (16:30)
[2018-02-04 17:15] VITALS: BP 124/77
[2018-02-05] MEDS: RisperiDONE 2 MG TABLET PO SCH ×2 (08:41→16:13)
[2018-02-05] MEDS: HALOPERIDOL 5 MG TABLET PO PRN ×2 (08:41→16:13)
[2018-02-05] MEDS: BENZTROPINE MESYLATE 1 MG TABLET PO SCH ×2 (08:41→16:13)
[2018-02-05] MEDS ORDERED: DiphenhydrAMINE HCL 50 MG/ML VIAL ONE (09:53)
[2018-02-05] MEDS ORDERED: LORazepam 2 MG/ML VIAL ONE (09:53)
[2018-02-05] MEDS ORDERED: HALOPERIDOL LACTATE 5 MG/ML VIAL ONE (09:53)
[2018-02-05] MEDS ORDERED: DiphenhydrAMINE HCL 50 MG/ML VIAL IM ONE ×2 (10:00→19:30)
[2018-02-05] MEDS ORDERED: HALOPERIDOL LACTATE 5 MG/ML VIAL IM ONE ×2 (10:00→19:30)
[2018-02-05] MEDS ORDERED: LORazepam 2 MG/ML VIAL IM ONE ×2 (10:00→19:30)
[2018-02-05 16:00] VITALS: BP 134/76
[2018-02-05] MEDS: OLANZapine 5 MG RAPDIS TABLET PO PRN (18:51)
[2018-02-06] MEDS ORDERED: LORazepam 2 MG/ML VIAL IM ONE ×2 (07:15→17:00)
[2018-02-06] MEDS ORDERED: DiphenhydrAMINE HCL 50 MG/ML VIAL IM ONE ×2 (07:15→17:00)
[2018-02-06] MEDS ORDERED: HALOPERIDOL LACTATE 5 MG/ML VIAL IM ONE ×2 (07:15→17:00)
[2018-02-06] MEDS: BENZTROPINE MESYLATE 1 MG TABLET PO SCH ×2 (08:29→16:00)
[2018-02-06] MEDS: RisperiDONE 2 MG TABLET PO SCH (08:29)
[2018-02-06] MEDS: RisperiDONE 3 MG TABLET PO SCH (16:01)
[2018-02-06 17:30] VITALS: BP 149/92
[2018-02-06 20:48] VITALS: BP 128/78
[2018-02-07] MEDS: ZOLPIDEM TARTRATE 10 MG TABLET PO PRN (00:13)
[2018-02-07 01:36] LABS: APPEARANCE,URINE CLEAR (CLEAR); BILIRUBIN,URINE NEGATIVE (NEGATIVE); GLUCOSE, URINE (UA) NEGATIVE (NEGATIVE); KETONES,URINE NEGATIVE (NEGATIVE); LEUKOCYTE ESTERASE ,URINE SMALL (NEGATIVE); NITRATE,URINE NEGATIVE (NEGATIVE); OCCULT BLOOD,URINE NEGATIVE (NEGATIVE); PH,URINE 5.5 (5.0-8.0); PROTEIN,URINE NEGATIVE (NEGATIVE); UROBILINOGEN,URINE 0.2 mg/dL (<=1.0)
[2018-02-07 01:46] LABS: AMPHET/METH SCREEN,URINE NEGATIVE (NEGATIVE); BARBITURATE SCREEN, URINE NEGATIVE (NEGATIVE); BENZODIAZEPINES SCREEN,URINE NEGATIVE (NEGATIVE); CANNABINOID SCREEN,URINE NEGATIVE (NEGATIVE); COCAINE SCREEN,URINE NEGATIVE (NEGATIVE); METHADONE SCREEN, URINE NEGATIVE (NEGATIVE); OPIATE SCREEN,URINE NEGATIVE (NEGATIVE)
[2018-02-07 01:47] LABS: PHENCYCLIDINE SCREEN,URINE NEGATIVE (NEGATIVE)
[2018-02-07 01:49] LABS: BACTERIA,URINE Few /HPF (None Seen); RBC,URINE None Seen /HPF (0-2); SQUAMOUS EPITHELIAL CELL,UR Moderate /LPF (None Seen)
[2018-02-07] MEDS: HALOPERIDOL 5 MG TABLET PO PRN ×2 (08:05→14:00)
[2018-02-07] MEDS: BENZTROPINE MESYLATE 1 MG TABLET PO SCH ×2 (08:05→14:00)
[2018-02-07] MEDS: RisperiDONE 3 MG TABLET PO SCH ×2 (08:05→18:42)
[2018-02-07] MEDS: OLANZapine 5 MG RAPDIS TABLET PO PRN (08:05)
[2018-02-07 08:29] VITALS: BP 145/81
[2018-02-07] MEDS: CarBAMazepine 200 MG TABLET PO SCH ×2 (09:00→18:42)
[2018-02-07] MEDS ORDERED: LORazepam 2 MG/ML VIAL ONE (15:35)
[2018-02-07] MEDS ORDERED: DiphenhydrAMINE HCL 50 MG/ML VIAL ONE (15:35)
[2018-02-07] MEDS ORDERED: HALOPERIDOL LACTATE 5 MG/ML VIAL ONE (15:35)
[2018-02-07] MEDS ORDERED: LORazepam 2 MG/ML VIAL IM ONE (15:45)
[2018-02-07] MEDS ORDERED: HALOPERIDOL LACTATE 5 MG/ML VIAL IM ONE (15:45)
[2018-02-07] MEDS ORDERED: DiphenhydrAMINE HCL 50 MG/ML VIAL IM ONE (15:45)
[2018-02-08 08:21] VITALS: BP 128/81
[2018-02-08] MEDS: BENZTROPINE MESYLATE 1 MG TABLET PO SCH ×2 (09:00→17:20)
[2018-02-08] MEDS: CarBAMazepine 200 MG TABLET PO SCH ×2 (09:01→17:20)
[2018-02-08] MEDS: RisperiDONE 3 MG TABLET PO SCH (09:01)
[2018-02-08] MEDS: LORazepam 1 MG TABLET PO PRN (09:02)
[2018-02-08] MEDS: OLANZapine 5 MG RAPDIS TABLET PO PRN (09:02)
[2018-02-08] MEDS ORDERED: FluPHENAZine HCL 2.5 MG/ML INJ IM ONE ×2 (09:15→15:00)
[2018-02-08] MEDS ORDERED: DiphenhydrAMINE HCL 50 MG/ML VIAL IM ONE ×2 (09:15→15:00)
[2018-02-08] MEDS ORDERED: LORazepam 2 MG/ML VIAL IM ONE ×2 (09:15→15:00)
[2018-02-08] MEDS ORDERED: DiphenhydrAMINE HCL 50 MG/ML VIAL ONE (09:18)
[2018-02-08] MEDS ORDERED: LORazepam 2 MG/ML VIAL ONE (09:18)
[2018-02-08] MEDS ORDERED: QUET200T PO (13:15)
[2018-02-08] MEDS ORDERED: ARIP400S3 IM (13:15)
[2018-02-08] MEDS ORDERED: MIRT15 PO (13:15)
[2018-02-08] MEDS ORDERED: HALO10 PO (13:15)
[2018-02-08 17:56] VITALS: BP 140/78
[2018-02-08] MEDS: HALOPERIDOL 10 MG TABLET PO SCH (20:51)
[2018-02-08] MEDS: MIRTAZAPINE 15 MG TABLET PO SCH (20:52)
[2018-02-08] MEDS: QUEtiapine FUMARATE 200 MG TABLET PO SCH (20:52)
[2018-02-09] MEDS: CarBAMazepine 200 MG TABLET PO SCH ×2 (08:10→16:21)
[2018-02-09] MEDS: BENZTROPINE MESYLATE 1 MG TABLET PO SCH ×2 (08:10→16:21)
[2018-02-09 08:26] VITALS: BP 128/86
[2018-02-09] MEDS: LORazepam 1 MG TABLET PO PRN (16:21)
[2018-02-09] MEDS: HALOPERIDOL 5 MG TABLET PO PRN (16:21)
[2018-02-09 16:49] VITALS: BP 140/87
[2018-02-09] MEDS: QUEtiapine FUMARATE 200 MG TABLET PO SCH (20:22)
[2018-02-09] MEDS: HALOPERIDOL 10 MG TABLET PO SCH (20:22)
[2018-02-09] MEDS: MIRTAZAPINE 15 MG TABLET PO SCH (20:24)
[2018-02-09] MEDS: ZOLPIDEM TARTRATE 10 MG TABLET PO PRN (20:24)
[2018-02-10] MEDS: CarBAMazepine 200 MG TABLET PO SCH ×2 (08:27→16:20)
[2018-02-10] MEDS: BENZTROPINE MESYLATE 1 MG TABLET PO SCH ×2 (08:27→16:21)
[2018-02-10] MEDS: LORazepam 1 MG TABLET PO PRN ×2 (08:35→16:21)
[2018-02-10] MEDS: HALOPERIDOL 5 MG TABLET PO PRN (16:21)
[2018-02-10] MEDS: OLANZapine 5 MG RAPDIS TABLET PO PRN (16:21)
[2018-02-10] MEDS: QUEtiapine FUMARATE 200 MG TABLET PO SCH (21:21)
[2018-02-10] MEDS: MIRTAZAPINE 15 MG TABLET PO SCH (21:21)
[2018-02-10] MEDS: ZOLPIDEM TARTRATE 10 MG TABLET PO PRN (21:21)
[2018-02-10] MEDS: HALOPERIDOL 10 MG TABLET PO SCH (21:21)
[2018-02-11] MEDS ORDERED: DiphenhydrAMINE HCL 50 MG/ML VIAL IM ONE (06:15)
[2018-02-11] MEDS ORDERED: LORazepam 2 MG/ML VIAL IM ONE (06:15)
[2018-02-11] MEDS ORDERED: FluPHENAZine HCL 2.5 MG/ML INJ IM ONE (06:15)
[2018-02-11] MEDS: OLANZapine 5 MG RAPDIS TABLET PO PRN (09:01)
[2018-02-11] MEDS: BENZTROPINE MESYLATE 1 MG TABLET PO SCH ×2 (09:01→15:55)
[2018-02-11] MEDS: CarBAMazepine 200 MG TABLET PO SCH ×2 (09:01→15:55)
[2018-02-11] MEDS: FluPHENAZine HCL 10 MG TABLET PO SCH (15:55)
[2018-02-11] MEDS: LORazepam 1 MG TABLET PO PRN (15:56)
[2018-02-11 16:26] VITALS: BP 123/55
[2018-02-11] MEDS ORDERED: BENZTROPINE MESYLATE 1 MG TABLET PO SCH (17:00)
[2018-02-11] MEDS: QUEtiapine FUMARATE 200 MG TABLET PO SCH (20:04)
[2018-02-11] MEDS: MIRTAZAPINE 15 MG TABLET PO SCH (20:04)
[2018-02-11] MEDS: HALOPERIDOL 10 MG TABLET PO SCH (20:04)
[2018-02-12 08:00] VITALS: BP 132/91
[2018-02-12] MEDS: LORazepam 1 MG TABLET PO PRN ×2 (08:00→15:38)
[2018-02-12] MEDS: HALOPERIDOL 5 MG TABLET PO PRN ×2 (08:00→15:38)
[2018-02-12] MEDS: BENZTROPINE MESYLATE 1 MG TABLET PO SCH ×2 (09:41→17:42)
[2018-02-12] MEDS: FluPHENAZine HCL 10 MG TABLET PO SCH ×2 (09:41→17:42)
[2018-02-12] MEDS: CarBAMazepine 200 MG TABLET PO SCH ×2 (09:41→17:42)
[2018-02-12] MEDS ORDERED: TUBERCULIN, PURIFIED PROTEIN DERIVATIVE 5 TU/0.1 ML SYG ID ONE (12:00)
[2018-02-12] MEDS ORDERED: DiphenhydrAMINE HCL 50 MG/ML VIAL IM ONE (15:45)
[2018-02-12] MEDS ORDERED: LORazepam 2 MG/ML VIAL IM ONE (15:45)
[2018-02-12] MEDS ORDERED: FluPHENAZine HCL 2.5 MG/ML INJ IM ONE (15:45)
[2018-02-12] MEDS: HALOPERIDOL 10 MG TABLET PO SCH (21:45)
[2018-02-12] MEDS: MIRTAZAPINE 15 MG TABLET PO SCH (21:45)
[2018-02-12] MEDS: QUEtiapine FUMARATE 200 MG TABLET PO SCH (21:45)
[2018-02-13] MEDS: FluPHENAZine HCL 10 MG TABLET PO SCH ×2 (08:43→16:11)
[2018-02-13] MEDS: CarBAMazepine 200 MG TABLET PO SCH ×2 (08:43→16:11)
[2018-02-13] MEDS: BENZTROPINE MESYLATE 1 MG TABLET PO SCH ×2 (08:43→16:11)
[2018-02-13 09:11] VITALS: BP 131/82
[2018-02-13] MEDS: LORazepam 1 MG TABLET PO PRN (15:30)
[2018-02-13] MEDS: HALOPERIDOL 5 MG TABLET PO PRN (15:30)
[2018-02-13 16:08] VITALS: BP 117/65
[2018-02-13] MEDS: MIRTAZAPINE 15 MG TABLET PO SCH (20:03)
[2018-02-13] MEDS: HALOPERIDOL 10 MG TABLET PO SCH (20:03)
[2018-02-13] MEDS: QUEtiapine FUMARATE 200 MG TABLET PO SCH (20:03)
[2018-02-14 03:32] VITALS: BP 121/77
[2018-02-14 08:26] VITALS: BP 131/81
[2018-02-14] MEDS: FluPHENAZine HCL 10 MG TABLET PO SCH ×2 (08:28→16:11)
[2018-02-14] MEDS: BENZTROPINE MESYLATE 1 MG TABLET PO SCH ×2 (08:28→16:11)
[2018-02-14] MEDS: CarBAMazepine 200 MG TABLET PO SCH ×2 (08:28→16:11)
[2018-02-14] MEDS: HALOPERIDOL 5 MG TABLET PO PRN ×2 (08:29→16:12)
[2018-02-14] MEDS: LORazepam 1 MG TABLET PO PRN ×2 (08:29→16:12)
[2018-02-14] MEDS ORDERED: ARIPiprazole ER SUSPENSION 400 MG PRE-FILLED DUAL CHAMBER SYRINGE IM SCH (09:00)
[2018-02-14 16:14] VITALS: BP 133/74
[2018-02-14] MEDS: QUEtiapine FUMARATE 200 MG TABLET PO SCH (20:25)
[2018-02-14] MEDS: HALOPERIDOL 10 MG TABLET PO SCH (20:26)
[2018-02-14] MEDS: MIRTAZAPINE 15 MG TABLET PO SCH (20:26)
[2018-02-15 08:00] VITALS: BP 119/71
[2018-02-15] MEDS: FluPHENAZine HCL 10 MG TABLET PO SCH ×2 (09:12→16:07)
[2018-02-15] MEDS: CarBAMazepine 200 MG TABLET PO SCH ×2 (09:12→16:07)
[2018-02-15] MEDS: BENZTROPINE MESYLATE 1 MG TABLET PO SCH ×2 (09:12→16:07)
[2018-02-15] MEDS: HALOPERIDOL 5 MG TABLET PO PRN (16:07)
[2018-02-15] MEDS: LORazepam 1 MG TABLET PO PRN (16:07)
[2018-02-15 16:17] VITALS: BP 140/91
[2018-02-15] MEDS: HALOPERIDOL 10 MG TABLET PO SCH (20:10)
[2018-02-15] MEDS: QUEtiapine FUMARATE 200 MG TABLET PO SCH (20:10)
[2018-02-15] MEDS: MIRTAZAPINE 15 MG TABLET PO SCH (20:11)
[2018-02-16] MEDS: LORazepam 1 MG TABLET PO PRN ×3 (06:44→16:01)
[2018-02-16] MEDS: HALOPERIDOL 5 MG TABLET PO PRN ×3 (06:44→16:01)
[2018-02-16] MEDS: BENZTROPINE MESYLATE 1 MG TABLET PO SCH ×2 (08:20→16:24)
[2018-02-16] MEDS: FluPHENAZine HCL 10 MG TABLET PO SCH ×2 (08:20→16:24)
[2018-02-16] MEDS: CarBAMazepine 200 MG TABLET PO SCH ×2 (08:21→16:24)
[2018-02-16 08:23] VITALS: BP 114/76
[2018-02-16] MEDS: OLANZapine 5 MG RAPDIS TABLET PO PRN (13:12)
[2018-02-16 16:03] VITALS: BP 134/77
[2018-02-16] MEDS: HALOPERIDOL 10 MG TABLET PO SCH (22:14)
[2018-02-16] MEDS: QUEtiapine FUMARATE 200 MG TABLET PO SCH (22:14)
[2018-02-16] MEDS: MIRTAZAPINE 15 MG TABLET PO SCH (22:14)
[2018-02-17] MEDS: CarBAMazepine 200 MG TABLET PO SCH ×2 (08:31→17:30)
[2018-02-17] MEDS: NICOTINE 14 MG/24 HOUR PATCH TD PRN (08:31)
[2018-02-17] MEDS: HALOPERIDOL 5 MG TABLET PO PRN ×3 (08:31→17:10)
[2018-02-17] MEDS: OLANZapine 5 MG RAPDIS TABLET PO PRN ×3 (08:31→17:10)
[2018-02-17] MEDS: LORazepam 1 MG TABLET PO PRN ×3 (08:31→17:10)
[2018-02-17] MEDS: BENZTROPINE MESYLATE 1 MG TABLET PO SCH ×2 (08:31→17:10)
[2018-02-17] MEDS: FluPHENAZine HCL 10 MG TABLET PO SCH ×2 (08:31→17:10)
[2018-02-17 08:37] VITALS: BP 115/70
[2018-02-17 16:00] VITALS: BP 110/78
[2018-02-17] MEDS: HALOPERIDOL 10 MG TABLET PO SCH (20:51)
[2018-02-17] MEDS: QUEtiapine FUMARATE 200 MG TABLET PO SCH (20:52)
[2018-02-17] MEDS: MIRTAZAPINE 15 MG TABLET PO SCH (20:52)
[2018-02-18] MEDS: BENZTROPINE MESYLATE 1 MG TABLET PO SCH ×2 (08:12→16:32)
[2018-02-18] MEDS: HALOPERIDOL 5 MG TABLET PO PRN ×2 (08:13→13:30)
[2018-02-18] MEDS: FluPHENAZine HCL 10 MG TABLET PO SCH ×2 (08:13→16:32)
[2018-02-18] MEDS: CarBAMazepine 200 MG TABLET PO SCH ×2 (08:13→16:32)
[2018-02-18] MEDS: LORazepam 1 MG TABLET PO PRN ×2 (08:13→13:30)
[2018-02-18] MEDS: OLANZapine 5 MG RAPDIS TABLET PO PRN ×2 (08:14→13:30)
[2018-02-18 10:00] VITALS: BP 114/79
[2018-02-18 16:30] VITALS: BP 118/80
[2018-02-18] MEDS: MAGNESIUM HYDROXIDE SUSPENSION 30 ML UDCUP PO PRN (18:32)
[2018-02-18] MEDS: HALOPERIDOL 10 MG TABLET PO SCH (20:26)
[2018-02-18] MEDS: MIRTAZAPINE 15 MG TABLET PO SCH (20:27)
[2018-02-18] MEDS: QUEtiapine FUMARATE 200 MG TABLET PO SCH (20:27)
[2018-02-19] MEDS: BENZTROPINE MESYLATE 1 MG TABLET PO SCH ×2 (08:30→17:18)
[2018-02-19] MEDS: FluPHENAZine HCL 10 MG TABLET PO SCH ×2 (08:30→17:18)
[2018-02-19] MEDS: LORazepam 1 MG TABLET PO PRN ×2 (08:31→13:48)
[2018-02-19] MEDS: HALOPERIDOL 5 MG TABLET PO PRN ×2 (08:31→13:48)
[2018-02-19] MEDS: CarBAMazepine 200 MG TABLET PO SCH ×2 (08:31→17:18)
[2018-02-19] MEDS: OLANZapine 5 MG RAPDIS TABLET PO PRN ×2 (08:35→13:48)
[2018-02-19 12:50] VITALS: BP 131/67
[2018-02-19 16:00] VITALS: BP 113/76
[2018-02-19] MEDS: QUEtiapine FUMARATE 200 MG TABLET PO SCH (20:24)
[2018-02-19] MEDS: HALOPERIDOL 10 MG TABLET PO SCH (20:24)
[2018-02-19] MEDS: MIRTAZAPINE 15 MG TABLET PO SCH (20:24)
[2018-02-20] MEDS: NICOTINE 14 MG/24 HOUR PATCH TD PRN (08:47)
[2018-02-20] MEDS: CarBAMazepine 200 MG TABLET PO SCH ×2 (08:47→16:25)
[2018-02-20] MEDS: BENZTROPINE MESYLATE 1 MG TABLET PO SCH ×2 (08:47→16:25)
[2018-02-20] MEDS: OLANZapine 5 MG RAPDIS TABLET PO PRN (08:47)
[2018-02-20] MEDS: FluPHENAZine HCL 10 MG TABLET PO SCH ×2 (08:48→16:25)
[2018-02-20] MEDS: HALOPERIDOL 5 MG TABLET PO PRN ×2 (11:30→15:35)
[2018-02-20] MEDS: LORazepam 1 MG TABLET PO PRN ×2 (11:30→15:35)
[2018-02-20 16:00] VITALS: BP 120/87
[2018-02-20] MEDS: HALOPERIDOL 10 MG TABLET PO SCH (20:24)
[2018-02-20] MEDS: QUEtiapine FUMARATE 200 MG TABLET PO SCH (20:24)
[2018-02-20] MEDS: MIRTAZAPINE 15 MG TABLET PO SCH (20:24)
[2018-02-21 08:00] VITALS: BP 121/73
[2018-02-21] MEDS: CarBAMazepine 200 MG TABLET PO SCH ×2 (08:03→16:03)
[2018-02-21] MEDS: FluPHENAZine HCL 10 MG TABLET PO SCH ×2 (08:03→16:03)
[2018-02-21] MEDS: BENZTROPINE MESYLATE 1 MG TABLET PO SCH ×2 (08:03→16:03)
[2018-02-21] MEDS: NICOTINE 14 MG/24 HOUR PATCH TD PRN (08:07)
[2018-02-21] MEDS: HALOPERIDOL 5 MG TABLET PO PRN (13:35)
[2018-02-21] MEDS: LORazepam 1 MG TABLET PO PRN (13:35)
[2018-02-21] MEDS: OLANZapine 5 MG RAPDIS TABLET PO PRN (15:16)
[2018-02-21 16:08] VITALS: BP 130/87
[2018-02-21] MEDS: HALOPERIDOL 10 MG TABLET PO SCH (20:27)
[2018-02-21] MEDS: MIRTAZAPINE 15 MG TABLET PO SCH (20:27)
[2018-02-21] MEDS: QUEtiapine FUMARATE 200 MG TABLET PO SCH (20:27)
[2018-02-22] MEDS: LORazepam 1 MG TABLET PO PRN ×3 (06:05→15:20)
[2018-02-22] MEDS: HALOPERIDOL 5 MG TABLET PO PRN ×3 (06:05→15:20)
[2018-02-22] MEDS: OLANZapine 5 MG RAPDIS TABLET PO PRN ×3 (06:05→15:20)
[2018-02-22 08:00] VITALS: BP 132/82
[2018-02-22] MEDS: CarBAMazepine 200 MG TABLET PO SCH ×2 (08:14→16:40)
[2018-02-22] MEDS: NICOTINE 14 MG/24 HOUR PATCH TD PRN (08:14)
[2018-02-22] MEDS: FluPHENAZine HCL 10 MG TABLET PO SCH ×2 (08:14→16:43)
[2018-02-22] MEDS: BENZTROPINE MESYLATE 1 MG TABLET PO SCH ×2 (08:15→16:40)
[2018-02-22] MEDS: MAGNESIUM HYDROXIDE SUSPENSION 30 ML UDCUP PO PRN (16:40)
[2018-02-22 17:37] VITALS: BP 146/83
[2018-02-22] MEDS: HALOPERIDOL 10 MG TABLET PO SCH (22:19)
[2018-02-22] MEDS: MIRTAZAPINE 15 MG TABLET PO SCH (22:19)
[2018-02-22] MEDS: QUEtiapine FUMARATE 200 MG TABLET PO SCH (22:19)
[2018-02-23] MEDS: HALOPERIDOL 5 MG TABLET PO PRN ×3 (06:54→17:55)
[2018-02-23] MEDS: LORazepam 1 MG TABLET PO PRN ×3 (06:54→17:55)
[2018-02-23] MEDS: CarBAMazepine 200 MG TABLET PO SCH ×2 (08:16→16:06)
[2018-02-23] MEDS: BENZTROPINE MESYLATE 1 MG TABLET PO SCH ×2 (08:16→16:06)
[2018-02-23] MEDS: FluPHENAZine HCL 10 MG TABLET PO SCH ×2 (08:17→16:05)
[2018-02-23] MEDS: MAGNESIUM HYDROXIDE SUSPENSION 30 ML UDCUP PO PRN (16:13)
[2018-02-23] MEDS: OLANZapine 5 MG RAPDIS TABLET PO PRN (16:40)
[2018-02-23 16:47] VITALS: BP 127/85
[2018-02-23] MEDS: HALOPERIDOL 10 MG TABLET PO SCH (20:21)
[2018-02-23] MEDS: QUEtiapine FUMARATE 200 MG TABLET PO SCH (20:21)
[2018-02-23] MEDS: MIRTAZAPINE 15 MG TABLET PO SCH (20:21)
[2018-02-24 08:10] VITALS: BP 120/79
[2018-02-24] MEDS: LORazepam 1 MG TABLET PO PRN ×2 (08:12→16:40)
[2018-02-24] MEDS: CarBAMazepine 200 MG TABLET PO SCH ×2 (08:12→16:40)
[2018-02-24] MEDS: FluPHENAZine HCL 10 MG TABLET PO SCH ×2 (08:12→16:41)
[2018-02-24] MEDS: HALOPERIDOL 5 MG TABLET PO PRN ×2 (08:12→16:40)
[2018-02-24] MEDS: BENZTROPINE MESYLATE 1 MG TABLET PO SCH ×2 (08:12→16:40)
[2018-02-24] MEDS: NICOTINE 14 MG/24 HOUR PATCH TD PRN (08:19)
[2018-02-24 16:17] VITALS: BP 121/78
[2018-02-24] MEDS: QUEtiapine FUMARATE 200 MG TABLET PO SCH (20:34)
[2018-02-24] MEDS: HALOPERIDOL 10 MG TABLET PO SCH (20:34)
[2018-02-24] MEDS: MIRTAZAPINE 15 MG TABLET PO SCH (20:34)
[2018-02-25] MEDS: HALOPERIDOL 5 MG TABLET PO PRN (08:03)
[2018-02-25] MEDS: FluPHENAZine HCL 10 MG TABLET PO SCH (08:03)
[2018-02-25] MEDS: LORazepam 1 MG TABLET PO PRN (08:03)
[2018-02-25] MEDS: CarBAMazepine 200 MG TABLET PO SCH (08:03)
[2018-02-25] MEDS: OLANZapine 5 MG RAPDIS TABLET PO PRN (08:03)
[2018-02-25] MEDS: BENZTROPINE MESYLATE 1 MG TABLET PO SCH (08:03)
[2018-02-25] MEDS: NICOTINE 14 MG/24 HOUR PATCH TD PRN (08:03)
[2018-02-25] MEDS ORDERED: FLUP10 PO (11:45)
[2018-02-25] MEDS ORDERED: BENZ1TAB10 PO (11:45)
[2018-02-25] MEDS ORDERED: CARB200T6 PO (11:45)
== END 2018-02-25 14:30 | disposition home or self-care (01) | DRG 750 ==
LOC: EMS 10:59 → 3EC 02-01 09:37
PROVIDERS: ADMIT Psychiatry & Neurology Child & Adolescent Psychiatry; ATTEND Psychiatry & Neurology Child & Adolescent Psychiatry
DX: F25.0 Schizoaffective disorder, bipolar type (principal); F15.20 Other stimulant dependence, uncomplicated; E55.9 Vitamin D deficiency, unspecified; F41.9 Anxiety disorder, unspecified; G47.00 Insomnia, unspecified; J45.909 Unspecified asthma, uncomplicated; K59.00 Constipation, unspecified; F17.210 Nicotine dependence, cigarettes, uncomplicated; F19.10 Other psychoactive substance abuse, uncomplicated; Z79.899 Other long term (current) drug therapy; Z91.14 Patient's other noncompliance with medication regimen; Z88.8 Allergy status to other drugs, medicaments and biological substances; Z71.51 Drug abuse counseling and surveillance of drug abuser
CPT/HCPCS: 80307; 83036; 84443; 87081; 87086; 96372; 99291; G0480; J0401; J1200; J1630; J2060; J3490

== ENCOUNTER 2023-03-13 23:29 | Emergency (ER) | payer MEDICAID, OTHER ==
[~2023-03-13] VITALS: Ht 167.6 cm; Wt 143.6 kg
[~2023-03-13 23:29] MED LIST changes: -BENZ0.5T44 PO; +BENZ1TAB84 PO; -DIPH25 PO; +FLUP10TA28 PO; +GABA-1181 PO; -HALO10 PO; +HALO10TA21 PO; +MIRT-89 PO; -MIRT15 PO
[2023-03-14 00:36] VITALS: BP 124/70; PULSE 105; RESP 14; TEMP 98.3
[2023-03-14] MEDS ORDERED: LORazepam 2 MG/ML VIAL IM ONE (00:45)
[2023-03-14] MEDS ORDERED: HALOPERIDOL LACTATE 5 MG/ML VIAL IM ONE (00:45)
[2023-03-14] MEDS ORDERED: DiphenhydrAMINE HCL 50 MG/ML VIAL IM ONE (00:45)
== END 2023-03-14 01:37 | disposition home or self-care (01) ==
LOC: EMS 23:30
DX: F25.9 Schizoaffective disorder, unspecified (principal); F41.9 Anxiety disorder, unspecified; J45.909 Unspecified asthma, uncomplicated; F31.9 Bipolar disorder, unspecified; F17.210 Nicotine dependence, cigarettes, uncomplicated; Z98.890 Other specified postprocedural states; Z88.8 Allergy status to other drugs, medicaments and biological substances
CPT/HCPCS: 99284; 96372; J1200; J1630; J2060